=== PATIENT | male | born 1995 | race Caucasian/White ===

== ENCOUNTER 2018-02-23 16:29 | Emergency (ER) | payer BC ==
--- NOTE | 2018-02-23 16:42 | UC ---
Bite Injury/Animal HPI - HPI Summary HPI Summary: Patient is 22 year old gentleman , who present today for a bug bite and redness on his right thigh for past 2 days. He feels that there is a good chance that it could be a spider bite. He tried to squeeze it and some pus came out and now its spreading but no more drainage. Denies any fever, chills, cough chest pain or shortness of breath . Denies any abdominal pain , nausea or vomiting , diarrhea or constipation. - History of Current Complaint Stated Complaint: BUG BITE RIGHT LEG Time Seen by Provider: 02/23/18 16:36 - Allergies/Home Medications Allergies/Adverse Reactions: Allergies Allergy/AdvReac Type Severity Reaction Status Date / Time ibuprofen Allergy Swelling Verified 02/23/18 16:44 Home Medications: Home Medications Cetirizine* [ZyrTEC 10 MG TAB*] 02/23/18 [History] PMH/Surg Hx/FS Hx/Imm Hx Previously Healthy: Yes Other Endocrine History: negative Other Cardiovascular History: negative Other Respiratory History: negative Other GI/ History: negative Other Neurological History: negative Other Psychological History: negative Other Cancer History: negative - Surgical History Surgical History: None - Social History Alcohol Use: Occasionally Substance Use Type: None - Immunization History Most Recent Tetanus Shot: 2005 Review of Systems Constitutional: Negative Skin: Rash - right thigh Eyes: Negative ENT: Negative Respiratory: Negative Cardiovascular: Negative Gastrointestinal: Negative Genitourinary: Negative Motor: Negative Neurovascular: Negative Musculoskeletal: Negative Neurological: Negative Psychological: Negative Is Patient Immunocompromised?: No All Other Systems Reviewed And Are Negative: Yes Physical Exam Triage Information Reviewed: Yes Appearance: Well-Appearing, No Pain Distress Vital Signs Reviewed: Yes Eye Exam: Normal Eyes: Positive: Conjunctiva Clear ENT: Positive: Hearing grossly normal. Negative: Nasal congestion, Nasal drainage, Trismus, Muffled voice, Hoarse voice Respiratory Exam: Normal Respiratory: Positive: Lungs clear, Normal breath sounds. Negative: Crackles, Rhonchi, Stridor Cardiovascular Exam: Normal Cardiovascular: Positive: RRR, No Murmur, Pulses Normal Musculoskeletal Exam: Normal Skin: Positive: Other - 6 cm x 8 cm area of erythema noted on the anterolateral thigh with a vcentral area of induration . No active drainage . No fluctuation. mild tenderness Bite Injury Course/Dx - Course Course Of Treatment: During his visit today, we discussed the findings and further plan. I will prescribe the medication to the pharmacy . Patient expressed understanding . - Differential Dx/Diagnosis Provider Diagnoses: Cellulitis Discharge - Sign-Out/Discharge Documenting (check all that apply): Discharge/Admit/Transfer - Discharge Plan Condition: Stable Disposition: HOME Prescriptions: Sulfamethox/Trimethoprim DS* [Bactrim DS 800/160 TAB*] 1 tab PO DAILY 10 Days # 20 tab Patient Education Materials: MRSA (Methicillin-Resistant Staphylococcus Aureus ) (ED), Cellulitis (ED) Referrals: Ya Cobian MD [Primary Care Provider] - 1 Week Additional Instructions: Your symptoms appear to be due to cellulitis, there is a concern for MRSA with a spider bite Start taking antibiotic . It has been prescribed to the pharmacy . Follow up with your primary care doctor in 1 week. Return to Urgent care / ER if symptoms get worse. - Billing Disposition and Condition Condition: STABLE Disposition: HOME Images Front/Back of Body, Lg ([place]): 1 - right anterolateral thigh
[2018-02-23 16:43] VITALS: BP 142/81
== END 2018-02-23 17:02 | disposition home or self-care (01) ==
LOC: UCEAST 16:29
DX: L03.115 Cellulitis of right lower limb (principal)
CPT/HCPCS: 99202; G0463

== ENCOUNTER 2019-01-19 20:15 | Emergency (ER) | payer BC ==
[2019-01-19 20:37] VITALS: BP 137/76
[2019-01-19] MEDS ORDERED: Cephalexin CAP* 500 MG PO ONE (21:31)
--- NOTE | 2019-01-19 21:31 | UC ---
Skin Complaint HPI - HPI Summary HPI Summary: 23 yo male presents with ?abscess to hand. He tells me that earlier today he noticed a "pus pocket" in the web spacing of his 2nd and 3rd LEFT digits. He was able to express purulent matter, but now it is red, swollen, and painful. He is unsure how long it has been there. Denies fever or puncture wound to the area. - History of Current Complaint Chief Complaint: UCSkin Time Seen by Provider: 01/19/19 21:26 Stated Complaint: SKIN Hx Obtained From: Patient Onset/Duration: Sudden Onset Pain Intensity: 0 - Allergy/Home Medications Allergies/Adverse Reactions: Allergies Allergy/AdvReac Type Severity Reaction Status Date / Time ibuprofen Allergy Swelling Verified 01/19/19 20:37 Home Medications: Home Medications Diphenhydra/Phenyleph/Acetamin [Theraflu Expressmax Cold Nt Lq] 245.5 ml PO [History] PMH/Surg Hx/FS Hx/Imm Hx - Additional Past Medical History Additional PMH: None - Surgical History Surgical History: Yes Surgery Procedure, Year, and Place: tonsills and addenoids - Social History Occupation: Employed Full-time Lives: With Family Alcohol Use: Daily Alcohol Amount: 5 drinks per day Substance Use Type: None Smoking Status (MU): Never Smoked Tobacco - Immunization History Most Recent Tetanus Shot: 2005 Review of Systems All Other Systems Reviewed And Are Negative: Yes Constitutional: Positive: Negative Skin: Positive: Other - Abscess hand Respiratory: Positive: Negative Cardiovascular: Positive: Negative Neurovascular: Positive: Negative Neurological: Positive: Negative Psychological: Positive: Negative Physical Exam - Summary Physical Exam Summary: GENERAL: NAD. WDWN. No pain distress. SKIN: LEFT 2nd and 3rd digit web spacing with 8mm abscess with central opening. No purulent matter able to be expressed. TTP. No streaking, bleeding, or drainage. CHEST: No accessory muscle use. Breathing comfortably and in no distress. CV: Pulses intact. Cap refill <2seconds NEURO: Alert. PSYCH: Age appropriate behavior. Triage Information Reviewed: Yes Vital Signs: Initial Vital Signs Temp 98.9 F 01/19/19 20:32 Pulse 86 01/19/19 20:32 Resp 16 01/19/19 20:32 BP 137/76 01/19/19 20:32 Pulse Ox 98 01/19/19 20:32 Vital Signs Reviewed: Yes Course/Dx - Course Course Of Treatment: Abscess hand. Will place pt on keflex and have him apply a band-aid to the area until well healed - Diagnoses Provider Diagnosis: Abscess, hand Discharge - Sign-Out/Discharge Documenting (check all that apply): Patient Departure All imaging exams completed and their final reports reviewed: No Studies - Discharge Plan Condition: Stable Disposition: HOME Prescriptions: Cephalexin CAP* [Keflex CAP*] 500 mg PO BID #10 cap Patient Education Materials: Cellulitis (DC) Referrals: Ya Cobian MD [Primary Care Provider] - Additional Instructions: If you develop a fever, shortness of breath, chest pain, new or worsening symptoms - please call your PCP or go to the ED. Keep the area covered with a band-aid until well healed - Billing Disposition and Condition Condition: STABLE Disposition: Home - Attestation Statements Provider Attestation: Pt not examined by me. I was available for consult.
== END 2019-01-19 21:40 | disposition home or self-care (01) ==
LOC: UCEAST 20:15
DX: L02.512 Cutaneous abscess of left hand (principal); Z88.6 Allergy status to analgesic agent
CPT/HCPCS: 99212; A9270-GY; G0463

== ENCOUNTER 2021-03-13 15:37 | Observation (INO) ==
[2021-03-13] MEDS ORDERED: Clindamycin 900 MG/D5W BAG 900 MG/50 ML BAG IVPB ONE (17:07)
[2021-03-13 17:55] LABS: ABS Lymphocytes 0.6 10^3/ul (1.0-4.8); ABS Monocytes 0.7 10^3/ul (0-0.8); ABS Neutrophils 6.5 10^3/ul (1.5-7.7); Hematocrit 47 % (42-52); Hemoglobin 16.1 g/dL (14.0-18.0); Lymphocyte % 7.5 %; Mean Corpuscular HGB Conc 35 g/dL (31-36); Mean Corpuscular Hemoglobin 28 pg (27-31); Mean Corpuscular Volume 80 fL (80-94); Nucleated Red Blood Cells % 0.2; Platelet Count 134 10^3/uL (150-450); Red Blood Count 5.82 10^6 /uL (4.18-5.48); Red Cell Distribution Width 13 % (10-15); White Blood Count 7.9 10^3/uL (3.5-10.8)
[2021-03-13 18:11] LABS: Albumin 4.6 g/dL (3.2-5.2); Albumin/Globulin Ratio 1.7 (1-3); Calcium 9.3 mg/dL (8.6-10.3); EGFR African American 117.9 (>60); EGFR Non-African American 97.5 (>60); Globulin 2.7 g/dL (2-4); Potassium 4.1 mmol/L (3.5-5.0); Total Bilirubin 0.9 mg/dL (0.2-1.0); Total Protein 7.3 g/dL (6.4-8.9)
[2021-03-13] MEDS ORDERED: Ondansetron 4 mg VIAL 2 MG/ML 2 ml VIAL IV PRN (19:23)
[2021-03-13] MEDS ORDERED: NS 0.9% 1000 ml BAG 1,000 ML IV SCH (19:30)
[2021-03-13 20:25] LABS: C Reactive Protein 72.27 mg/L (<8.01)
[2021-03-13 21:32] LABS: Erythrocyte Sed Rate 2 mm/Hr (0-14)
[2021-03-14] MEDS: ceFAZolin 2 GM PREMIX 2 GM/50 ML BAG IVPB SCH ×3 (01:55→17:45)
[2021-03-14 06:00] LABS: ABS Lymphocytes 0.8 10^3/ul (1.0-4.8); ABS Monocytes 0.9 10^3/ul (0-0.8); ABS Neutrophils 5.8 10^3/ul (1.5-7.7); Eosinophil % 0.1 %; Hematocrit 45 % (42-52); Hemoglobin 15.3 g/dL (14.0-18.0); Lymphocyte % 10.4 %; Mean Corpuscular HGB Conc 34 g/dL (31-36); Mean Corpuscular Hemoglobin 28 pg (27-31); Mean Corpuscular Volume 80 fL (80-94); Mean Platelet Volume 8.8 fL (7.4-10.4); Nucleated Red Blood Cells % 0.4; Platelet Count 116 10^3/uL (150-450); Red Blood Count 5.54 10^6 /uL (4.18-5.48); Red Cell Distribution Width 13 % (10-15); White Blood Count 7.3 10^3/uL (3.5-10.8)
[2021-03-14 06:06] LABS: INR 1.19 (0.82-1.09)
[2021-03-14 06:08] LABS: Calcium 9.3 mg/dL (8.6-10.3); EGFR African American 104.8 (>60); EGFR Non-African American 86.6 (>60); Potassium 3.5 mmol/L (3.5-5.0)
[2021-03-14 08:06] LABS: C Reactive Protein 123.24 mg/L (<8.01)
[2021-03-14] MEDS ORDERED: diPHENhydraMINE IV 50 MG/ML 1 ml VIAL (BENADRYL) IV PRN (19:29)
[2021-03-15] MEDS: ceFAZolin 2 GM PREMIX 2 GM/50 ML BAG IVPB SCH ×2 (01:41→09:41)
[2021-03-15 06:42] LABS: Hematocrit 43 % (42-52); Hemoglobin 14.7 g/dL (14.0-18.0); Mean Corpuscular HGB Conc 34 g/dL (31-36); Mean Corpuscular Hemoglobin 28 pg (27-31); Mean Corpuscular Volume 81 fL (80-94); Mean Platelet Volume 9.4 fL (7.4-10.4); Platelet Count 128 10^3/uL (150-450); Red Blood Count 5.37 10^6 /uL (4.18-5.48); Red Cell Distribution Width 13 % (10-15)
[2021-03-15 11:02] VITALS: BP 132/77
== END 2021-03-15 15:45 | disposition home or self-care (01) ==
LOC: SSU 15:37 → ED 15:37 → SSU 21:18
PROVIDERS: ADMIT Internal Medicine; ATTEND Internal Medicine